=== PATIENT | male | born 2000 | race Caucasian/White ===

== ENCOUNTER 2025-04-15 15:07 | Emergency (ER) | payer OTHER, SELFPAY ==
[2025-04-15 15:13] VITALS: BP 148/80; PULSE 118; O2SAT 98; BMI 28.8
[2025-04-15 15:19] VITALS: BP 130/69; PULSE 109; RESP 20; TEMP 37.1; O2SAT 96
--- NOTE | 2025-04-15 15:23 | PC.NURSE ---
Patient presents after a bee sting to his right hand at unknown time with a history of anaphylaxis to bee stings. Unsure of how to use epi pen. Redness and swelling noted to right knuckle area. Benadryl given in route. communications tower technician applied and stach noted. Lungs clear bilat. Respirations even and non-labored. No sob or facial swelling noted. Abdomen soft, non-tender with positive bowel sounds. Positive pedal pulses with no edema.
--- NOTE | 2025-04-15 15:39 | ED_ITS ---
HPI - General Adult General Chief complaint: Allergic Reaction Stated complaint: bee sting allergic, ETOH Time Seen by Provider: 04/15/25 15:08 Source: patient Mode of arrival: ambulatory Limitations: no limitations History of Present Illness ED Provider: Huber Patricio [facility] narrative: 24 yold male presents to the ED for allergic reaction the right hand. Patient was stung by bees in his right hand in his right hand became swollen and red. Patient has a EpiPen but does not know how to use it. Patient denies any swelling of lips, swelling of tongue, sensation of throat closing, shortness of breath, chest pain, shortness of breath, fever, or chills Related Data Previous Rx's ?Medication ?Instructions ?Recorded cephalexin 500 mg capsule 500 mg PO QID 7 days #28 cap s 04/15/25 diphenhydramine HCl 25 mg capsule 25 mg PO TID PRN all ergic reaction 04/15/25 (Benadryl) 7 days #21 caps famotidine 20 mg tablet (Pepcid) 20 mg PO BID 5 days # 10 tabs 04/15/25 prednisone 20 mg tablet 40 mg (2 x 20 mg) PO DAILY 5 days 04/15/25 #10 tabs Allergies Allergy/AdvReac Type Severity Reaction Status Date / Time No Known Allergies Allergy Verified 04/15/25 15:16 Review of Systems 2 Review of Systems: bee sting right hand. Yes all other systems are reviewed and are negative PMFSH Social History Social History Alcohol intake: current Smoked in Last 30 Days: Yes Use of substances other than those prescribed or required for medical reasons: Yes Substance Use Type: Marijuana Advance Directives: No Advance Directives Information Provided: No Physical Exam ED Vital Signs: Vital Signs - 24 hr 04/15/25 15:19 04/15/25 15:53 Temperature 98.7 F 98.7 F Pulse Rate 109 H 109 H Respiratory Rate 20 20 Blood Pressure 130/69 130/69 Pulse Oximetry 96 96 Oxygen Delivery Method Room Air Room Air BMI result Body Mass Index 28.8 Const General: cooperative, healthy appearing, comfortable, no acute distress, well developed, alert and awake Orientation/consciousness: patient oriented x3 HENMT Other: negative for lip swelling, tongue swelling, drooling, or change in voice. Head: Yes normal to inspection, Yes No palpable skull fracture present, Yes normocephalic and Yes atraumatic Eyes General: appearance normal, both eyes and all related structures Neck Neck: Yes normal visual inspection, Yes full ROM, Yes no lymphadenopathy, Yes no meningeal signs, Yes trachea midline, Yes supple, No anterior neck swelling and No tender Chest Chest palpation & inspection: normal inspection of the chest and normal palpation of entire chest wall Resp Effort & Inspection: normal respiratory effort and able to speak in complete sentences Auscultation: clear to auscultation bilaterally Cardio Jugular venous distension: no JVD Heart sounds: S1 normal heart sound present and S2 normal heart sound present GI Inspection: Yes normal to inspection Palpation (GI): Soft to palpation, not firm, nontender, no guarding and not rigid General: Yes no CVA tenderness Back/Spine/Pelvis Back: no CVA tenderness and No back tenderness Skin General skin exam: no rashes or lesions noted, elasticity normal and turgor normal Neuro General: patient oriented x3, gait normal, tone normal, moves all extremities, Normal light touch and pain sensation, no meningeal signs, no focal motor deficits, CN's II-XI intact bilaterally and normal sensation to monofilament Extrem General: Yes normal to inspection, Yes full ROM and Yes capillary refill normal Hand/finger images: 2 1. slight swelling with some redness. Negative for any pus discharge, stiffness, bluish black discoloration, hotness, back streaks, coldness. Negative for deformity or crepitus. Rest of extremity normal. Motor/neuro /vascular exam intact Psych Appearance: grossly normal, well kempt and not disheveled Medical Decision Making Medical Decision Making MDM Narrative: 24-year-old male presents to ED for right hand allergic reaction after being stung by a bee. Patient does not want any further evaluation. Patient was given Benadryl in the ambulance and has a EpiPen. Presently negative for signs of anaphylaxis. Not suspecting tenosynovitis, arterial occlusion, compartment syndrome, [place], PE, necrotizing fasciitis, osteomyelitis, or any other life- threatening etiology. Patient discharged with Benadryl prednisone and Pepcid with Keflex. Patient explained worrisome signs and informed to return to the ED immediately. Patient is educated on how to use his EpiPen. Differential Diagnosis Differential Diagnoses: The differential diagnosis associated with the presentation includes ( Allergic reaction, cellulitis) Admission/Observation Consideration of admission/observation: Escalation of care including admission/observation considered Independent Historian Clinical information obtained from an independent historian. History obtained from or confirmed by: Other ( patient is) Prescription Management I considered prescription management with: Antibiotic and Other Discharge Plan Discharge Clinical Impression: Allergic reaction, Insect bite, Cellulitis Patient Disposition: Home, Self-Care Instructions: Cellulitis (ED), General Allergic Reaction (ED), Warm Compress or Soak (ED), Cold Compress or Soak (ED) Additional Instructions: Recommend follow-up with primary care provider. Return to the ED for any swelling of the lips, swelling of the tongue, shortness of breath, chest pain, fever, chills, coughing up blood, increased swelling, worsening rash, redness, bluish black discoloration, or any other concerning symptoms. Prescriptions: New diphenhydramine HCl [Benadryl] 25 mg capsule 25 mg PO TID PRN (Reason: allergic reaction) 7 Days Qty: 21 0RF prednisone 20 mg tablet 40 mg PO DAILY 5 Days Qty: 10 0RF cephalexin 500 mg capsule 500 mg PO QID 7 Days Qty: 28 0RF famotidine [Pepcid] 20 mg tablet 20 mg PO BID 5 Days Qty: 10 0RF Stand Alone Forms: Work/School Release Interventions: ED Discharge Assessment Last Done: 04/15/25 15:53 Discharge Date/Time: 04/15/25 16:00 Print Language: Angolan
[2025-04-15 15:53] VITALS: BP 130/69; PULSE 109; RESP 20; TEMP 37.1; O2SAT 96
== END 2025-04-15 16:00 | disposition home or self-care (01) ==
PROVIDERS: Emergency Provider Emergency Medicine
DX: T63.441A Toxic effect of venom of bees, accidental (unintentional), initial encounter (principal); L03.113 Cellulitis of right upper limb
CPT/HCPCS: 99283; 99284